=== PATIENT | male | born 1930 | race Caucasian/White ===

== ENCOUNTER 2018-12-01 17:26 | Outpatient (CLI) | payer OTHER | END 2018-12-01 17:27 | disposition critical access hospital (66) | LOC: EMS 17:26 | PROVIDERS: ATTEND Surgery | DX: M54.2 Cervicalgia (principal); Z79.02 Long term (current) use of antithrombotics/antiplatelets; V49.40XA Driver injured in collision with unspecified motor vehicles in traffic accident, initial encounter; Y92.413 State road as the place of occurrence of the external cause | CPT/HCPCS: A0425; A0427 ==

== ENCOUNTER 2018-12-01 17:41 | Emergency (ER) | payer OTHER ==
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
[2018-12-01 19:10] VITALS: BP 161/80
== END 2018-12-01 19:12 | disposition home or self-care (01) ==
LOC: EDUNIT# → ED 17:41
DX: S19.9XXA Unspecified injury of neck, initial encounter (principal); S09.90XA Unspecified injury of head, initial encounter; V43.52XA Car driver injured in collision with other type car in traffic accident, initial encounter; Y92.410 Unspecified street and highway as the place of occurrence of the external cause; M48.02 Spinal stenosis, cervical region; I25.2 Old myocardial infarction; Z79.02 Long term (current) use of antithrombotics/antiplatelets
CPT/HCPCS: 70450; 72125; 99283